=== PATIENT | female | born 1980 | race Caucasian/White ===

== ENCOUNTER 2018-01-13 23:17 | Emergency (ER) | payer OTHER ==
[~2018-01-13] VITALS: Ht 170.2 cm; Wt 71.0 kg
[2018-01-13 23:26] VITALS: BP 131/84
== END 2018-01-14 02:19 | disposition left against medical advice (07) ==
LOC: EMS 23:18
DX: M54.2 Cervicalgia (principal); R22.0 Localized swelling, mass and lump, head; G89.29 Other chronic pain; F17.210 Nicotine dependence, cigarettes, uncomplicated; Z53.21 Procedure and treatment not carried out due to patient leaving prior to being seen by health care provider

== ENCOUNTER 2018-04-21 22:36 | Emergency (ER) | payer OTHER ==
[~2018-04-21] VITALS: Ht 170.2 cm; Wt 72.7 kg
[2018-04-21] MEDS ORDERED: ZOLP5 PO (23:01)
[2018-04-21] MEDS ORDERED: PREG50 PO (23:01)
[2018-04-21] MEDS ORDERED: HYDR-308 PO (23:01)
[2018-04-21 23:20] LABS: APPEARANCE,URINE CLEAR (CLEAR); BILIRUBIN,URINE NEGATIVE (NEGATIVE); GLUCOSE, URINE (UA) NEGATIVE (NEGATIVE); KETONES,URINE NEGATIVE (NEGATIVE); LEUKOCYTE ESTERASE ,URINE NEGATIVE (NEGATIVE); NITRATE,URINE NEGATIVE (NEGATIVE); OCCULT BLOOD,URINE NEGATIVE (NEGATIVE); PROTEIN,URINE NEGATIVE (NEGATIVE); UROBILINOGEN,URINE 0.2 mg/dL (<=1.0)
[2018-04-21 23:24] LABS: BASOPHILS % (AUTO) 0.6 % (0.0-2.0); EOSINOPHILS % (AUTO) 1.5 % (1.0-6.0); HEMATOCRIT 40.5 % (36-46); LYMPHOCYTES # (AUTO) 3.1 K/uL (1.0-4.8); LYMPHOCYTES % (AUTO) 42.7 % (22.0-44.0); MEAN CORPUSCULAR HGB CONC 34.6 G/dL (31.0-37.0); MEAN CORPUSCULAR VOLUME 93 fL (80-100); MONOCYTES # (AUTO) 0.4 K/uL (0.1-1.0); MONOCYTES % (AUTO) 5.8 % (2.0-9.0); NEUTROPHILS # (AUTO) 3.5 K/uL (1.8-7.7); NEUTROPHILS % (AUTO) 49.4 % (40.0-70.0); PLATELET COUNT (AUTO) 226 K/uL (150-450); RED BLOOD CELL COUNT(AUTO) 4.37 MIL/uL (4.00-5.20); RED CELL DISTRIBUTION WIDTH 12.6 % (11.5-14.5)
[2018-04-21 23:36] LABS: ANION GAP 9 mmol/L (8-16); CALCIUM, TOTAL 9.1 mg/dL (8.8-10.5); CARBON DIOXIDE 27 mmol/L (22-29); CHLORIDE 104 mmol/L (98-107); CREATININE 0.77 mg/dL (0.60-1.30); GLOMERULAR FILTR. RATE CALC > 60 mL/min (>60); GLUCOSE,RANDOM 99 mg/dL (70-110); POTASSIUM 4.7 mmol/L (3.5-5.1); SODIUM SERUM 140 mmol/L (136-145); UREA NITROGEN, BLOOD 10 mg/dL (7-18)
[2018-04-21 23:42] LABS: ALANINE AMINOTRANSFERASE 179 U/L (12-78); ALBUMIN 3.8 g/dL (3.4-5.0); ALKALINE PHOSPHATASE 124 U/L (46-116); ASPARTATE AMINOTRANSFERASE 58 U/L (15-37); BILIRUBIN,TOTAL 0.2 mg/dL (0.1-1.0); LIPASE 165 U/L (73-393); TOTAL PROTEIN, SERUM 7.3 g/dL (6.4-8.2)
[2018-04-22 00:21] VITALS: BP 137/89
== END 2018-04-22 00:26 | disposition home or self-care (01) ==
LOC: EMS 22:37
DX: K80.50 Calculus of bile duct without cholangitis or cholecystitis without obstruction (principal); G89.29 Other chronic pain; F17.210 Nicotine dependence, cigarettes, uncomplicated; Z98.890 Other specified postprocedural states; Z88.5 Allergy status to narcotic agent
CPT/HCPCS: 99284

== ENCOUNTER 2025-03-03 19:24 | Emergency (ER) | payer MEDICAID, OTHER ==
[~2025-03-03] VITALS: Ht 170.2 cm; Wt 81.8 kg
[~2025-03-03 19:24] MED LIST: HYDR-308 PO; PREG50 PO; ZOLP-280 PO
[2025-03-03] MEDS ORDERED: OXYC5 PO (20:38)
[2025-03-03] MEDS ORDERED: ACET-3385 PO (20:38)
[2025-03-03] MEDS ORDERED: AMOX-457 PO (20:38)
[2025-03-03] MEDS ORDERED: IBUP-1492 PO (20:38)
[2025-03-03] MEDS: ACETAMINOPHEN 500 MG TABLET PO ONE (20:42)
[2025-03-03] MEDS: AMOX TR/POT CLAV 875 MG/125 MG TABLET PO ONE (20:43)
[2025-03-03 21:13] VITALS: BP 137/88; PULSE 82; RESP 16; TEMP 97.9; O2SAT 98
== END 2025-03-03 21:41 | disposition home or self-care (01) ==
LOC: EMS 19:24
DX: K02.9 Dental caries, unspecified (principal); G89.29 Other chronic pain; F17.210 Nicotine dependence, cigarettes, uncomplicated; Z88.5 Allergy status to narcotic agent; Z90.89 Acquired absence of other organs; Z79.899 Other long term (current) drug therapy
CPT/HCPCS: 99283